=== PATIENT | female | born 1995 ===

== ENCOUNTER 2021-09-17 05:58 | Inpatient (IN) | payer SELFPAY ==
[2021-09-17] MEDS ORDERED: Butorphanol 1 MG/ML SDV IVPUSH PRN (06:00)
[2021-09-17] MEDS ORDERED: Oxytocin/0.9 % Sodium Chloride 30 UNIT/500 ML BAG IV SCH (06:00)
[2021-09-17] MEDS ORDERED: Lactated Ringers 1,000 ML IV SCH (06:00)
[2021-09-17] MEDS ORDERED: Sodium Chloride 0.9% 10 ML Syringe FLUSH PRN (06:00)
[2021-09-17] MEDS ORDERED: Sodium Chloride 0.9% 2.5 ML Syringe FLUSH PRN (06:00)
[2021-09-17] MEDS ORDERED: Misoprostol 200 MCG Tab PO PRN (06:00)
[2021-09-17] MEDS ORDERED: Tranexamic Acid 1,000 MG in Sodium Chloride 0.9% 100 ML IV PRN ×2 (06:00→10:14)
[2021-09-17] MEDS ORDERED: Sodium Chloride 0.9% 20 ML SDV IV PRN (06:00)
[2021-09-17] MEDS ORDERED: Water For Irrigation,Sterile 1,000 ML Container IRR PRN (06:00)
[2021-09-17] MEDS ORDERED: Nalbuphine 10 MG/1 ML Vial IVPUSH PRN (06:00)
[2021-09-17] MEDS ORDERED: Methylergonovine 0.2 MG/1 ML Amp IM PRN ×2 (06:00→10:14)
[2021-09-17] MEDS ORDERED: Carboprost Tromethamine 250 MCG/1 ML Amp IM PRN ×2 (06:00→10:14)
[2021-09-17] MEDS ORDERED: Lidocaine 1% 50 ML MDV INJECT PRN (06:00)
[2021-09-17] MEDS ORDERED: Ampicillin 1 GM in Sodium Chloride 0.9% 50 ML IV SCH ×2 (06:45→11:00)
[2021-09-17] MEDS ORDERED: Ampicillin 2 GM in Sodium Chloride 0.9% 100 ML IV SCH (07:00)
[2021-09-17] MEDS ORDERED: Diphtheria,Pertussis(Acell),Tetanus Vaccine 0.5 ML Syringe IM ONE (10:14)
[2021-09-17] MEDS ORDERED: Benzocaine/Menthol 20%-0.5% Spray 78 GM Cannister TOP PRN (10:14)
[2021-09-17] MEDS ORDERED: Witch Hazel Medicated Pads 40/Jar TOP PRN (10:14)
[2021-09-17] MEDS ORDERED: Ibuprofen 800 MG Tab PO PRN (10:14)
[2021-09-17] MEDS ORDERED: oxyCODONE 5 MG Tab PO PRN (10:14)
[2021-09-17] MEDS ORDERED: Docusate Sodium 100 MG Cap PO PRN (10:14)
[2021-09-17] MEDS ORDERED: Bisacodyl 10 MG Supp RECTAL PRN (10:14)
[2021-09-17] MEDS ORDERED: Measles, Mumps & Rubella Vaccine 0.5 ML SDV SUBCUT ONE (10:14)
[2021-09-17] MEDS ORDERED: Misoprostol 200 MCG Tab RECTAL PRN (10:14)
[2021-09-17] MEDS ORDERED: Lanolin 100% Cream 7 GM Tube TOP PRN (10:14)
[2021-09-17] MEDS ORDERED: Acetaminophen 500 MG Tab PO PRN ×2 (10:14)
[2021-09-17] MEDS ORDERED: Ibuprofen 400 MG Tab PO PRN (10:14)
[2021-09-20 14:07] LABS: C.TRACHOMATIS BY TMA Negative (Negative); N.GONORRHOEAE BY TMA Negative (Negative)
== END 2021-09-17 20:00 | disposition home or self-care (01) | DRG 807 ==
LOC: MW.OBCHECK 05:58 → MW.OB 05:59 → MW.OBCHECK 09:50 → OBSVTOIN 10:14
PROVIDERS: ADMIT Obstetrics & Gynecology; ATTEND Obstetrics & Gynecology
PROC: 10E0XZZ Delivery of Products of Conception, External Approach (ICD-10-PCS; principal; 2021-09-17)
DX: O48.0 Post-term pregnancy (principal); Z37.0 Single live birth; Z3A.40 40 weeks gestation of pregnancy; O77.0 Labor and delivery complicated by meconium in amniotic fluid
CPT/HCPCS: 36415; 59025; 59409; 76815; 76815-26; 80305-QW; 84112; 85027; 86592; 86762; 86803; 86850; 86900; 86901; 87340; 87389; 87491; 87591; J0290; J7120; U0002